=== PATIENT | male | born 1950 | race Caucasian/White ===

== ENCOUNTER 2020-07-17 20:12 | Emergency (ER) | payer MEDICARE, OTHER ==
[~2020-07-17 20:12] MED LIST: COLACE100 MG PO; COREG 12.5MG12.5 MG PO; FLOMAX 0.4 MG0.4 MG PO; GABAPENTIN300 MG PO; KEFLEX CAP 500500 MG PO; LIPITOR80 MG PO; METFORMIN HCL500 M2 PO; VIBRAMYCIN100 MG PO; ZYVOX600 MG PO
[2020-07-17 20:50] LABS: HEMOGLOBIN 15.6 gm/dl (14.0-17.5); RED BLOOD COUNT 5.14 M/UL (4.20-5.50); WHITE BLOOD COUNT 12.1 K/UL (4.5-11.0)
[2020-07-17 21:07] LABS: BUN/CREATININE RATIO 22 (0-10)
[2020-07-18] MEDS ORDERED: CLINDAMYCIN HC300 MG PO (01:12)
== END 2020-07-18 01:25 | disposition home or self-care (01) ==
LOC: ER1 20:12
PROVIDERS: Family Medicine
DX: E11.621 Type 2 diabetes mellitus with foot ulcer (principal); L97.509 Non-pressure chronic ulcer of other part of unspecified foot with unspecified severity; F17.210 Nicotine dependence, cigarettes, uncomplicated
CPT/HCPCS: 71045; 80053; 81001; 82962; 83605; 83735; 84100; 85025; 85652; 86140; 87040; 87070; 87077; 87086; 87186; 87205; 93005; 99284

== ENCOUNTER 2021-01-06 14:43 | Emergency (ER) | payer MEDICARE, OTHER ==
[~2021-01-06 14:43] MED LIST changes: +CLINDAMYCIN HC300 MG PO
[2021-01-06 16:22] LABS: HEMOGLOBIN 14.7 gm/dl (14.0-17.5); RED BLOOD COUNT 4.83 M/UL (4.20-5.50); WHITE BLOOD COUNT 11.6 K/UL (4.5-11.0)
== END 2021-01-07 04:19 | disposition short-term general hospital (02) ==
LOC: ER1 14:43
PROVIDERS: Physician Assistant Medical
DX: L03.116 Cellulitis of left lower limb (principal); E11.621 Type 2 diabetes mellitus with foot ulcer; L97.529 Non-pressure chronic ulcer of other part of left foot with unspecified severity; I11.9 Hypertensive heart disease without heart failure; Z20.822 Contact with and (suspected) exposure to COVID-19; E11.40 Type 2 diabetes mellitus with diabetic neuropathy, unspecified; Z90.89 Acquired absence of other organs; Z95.5 Presence of coronary angioplasty implant and graft
CPT/HCPCS: 70450; 71045; 72131; 73630; 80053; 81001; 82009; 82550; 82553; 83605; 83874; 84484; 85025; 85652; 86140; 87040; 93005; 99285; J0696; J2270; J2405; J2543; J3370; J7050; U0002

== ENCOUNTER → 2021-02-11 | Outpatient (CLI) | payer MEDICARE, OTHER ==
[2021-02-11 12:15] LABS: HEMOGLOBIN 12.7 gm/dl (14.0-17.5); RED BLOOD COUNT 4.31 M/UL (4.20-5.50); WHITE BLOOD COUNT 9.3 K/UL (4.5-11.0)
[2021-02-11 12:52] LABS: BUN/CREATININE RATIO 13 (0-10)
== END ==
LOC: VNA 11:47
PROVIDERS: Internal Medicine Infectious Disease
DX: E11.69 Type 2 diabetes mellitus with other specified complication (principal); M86.9 Osteomyelitis, unspecified; I10 Essential (primary) hypertension; N18.6 End stage renal disease; A41.9 Sepsis, unspecified organism; E11.22 Type 2 diabetes mellitus with diabetic chronic kidney disease; Z47.81 Encounter for orthopedic aftercare following surgical amputation
CPT/HCPCS: 80053; 82550; 85025; 86140

== ENCOUNTER → 2021-02-18 | Outpatient (CLI) | payer MEDICARE, OTHER ==
[2021-02-18 18:43] LABS: HEMOGLOBIN 12.8 gm/dl (14.0-17.5); RED BLOOD COUNT 4.28 M/UL (4.20-5.50); WHITE BLOOD COUNT 10.8 K/UL (4.5-11.0)
[2021-02-18 19:11] LABS: BUN/CREATININE RATIO 17 (0-10)
== END ==
LOC: VNA 17:24
PROVIDERS: Internal Medicine Infectious Disease
DX: Z47.81 Encounter for orthopedic aftercare following surgical amputation (principal); E11.22 Type 2 diabetes mellitus with diabetic chronic kidney disease; E11.69 Type 2 diabetes mellitus with other specified complication; B96.89 Other specified bacterial agents as the cause of diseases classified elsewhere; I12.0 Hypertensive chronic kidney disease with stage 5 chronic kidney disease or end stage renal disease; N18.6 End stage renal disease
CPT/HCPCS: 80053; 82550; 85025; 86140